=== PATIENT | female | born 1980 | race Caucasian/White ===

== ENCOUNTER 2023-03-02 11:50 | Emergency (ER) | payer OTHER ==
[~2023-03-02] VITALS: Ht 162.6 cm; Wt 77.3 kg
[2023-03-02] MEDS ORDERED: FLAGYL500 MG PO (12:20)
[2023-03-02] MEDS ORDERED: Cyclobenzaprine 10 MG TAB PO ONE (12:45)
[2023-03-02] MEDS ORDERED: FLEXERIL5 MG PO (13:26)
[2023-03-02] MEDS ORDERED: Ketorolac 30 MG/ML VIAL IM ONE (13:45)
[2023-03-02 14:17] VITALS: BP 140/82; PULSE 86; TEMP 97.2
== END 2023-03-02 14:15 | disposition home or self-care (01) ==
LOC: COL.ER 11:50
DX: M43.6 Torticollis (principal)
CPT/HCPCS: J1885

== ENCOUNTER 2023-10-08 17:02 | Emergency (ER) | payer OTHER ==
[~2023-10-08] VITALS: Ht 162.6 cm; Wt 79.5 kg
[~2023-10-08 17:02] MED LIST: FLAGYL500 MG PO; FLEXERIL5 MG PO
[2023-10-08 17:24] VITALS: TEMP 97.8
[2023-10-08 19:20] LABS: PH 5.5 (5.0-8.5); URINE APPEARANCE CLEAR (CLEAR/HAZY); URINE BLOOD NEGATIVE (NEGATIVE); URINE COLOR YELLOW (YELLOW); URINE GLUCOSE NEGATIVE (NEGATIVE); URINE KETONE NEGATIVE (NEGATIVE); URINE NITRATE NEGATIVE (NEGATIVE); URINE PROTEIN(semi-quant) NEGATIVE (NEGATIVE); URINE UROBILINOGEN 0.2 E.U/dL (0.2-1.0)
[2023-10-08 19:24] LABS: COLLECTION METHOD CLEAN CATCH
[2023-10-08 19:55] LABS: BASO % 0.2 % (0.0-2.0); EOS # 0.1 K/mm3 (0.0-0.7); GRAN # 5.1 K/mm3 (1.4-6.5); HEMATOCRIT 44.2 % (37.0-47.0); HEMOGLOBIN 14.9 g/dl (12.5-16.0); LYMPH # 2.2 K/mm3 (1.2-3.4); LYMPH % 27.2 % (20.0-51.0); MEAN CELL VOLUME 90 fl (80.0-100.0); MEAN CORPUSCULAR HEMOGLOBIN 30 pg (27-31); MEAN CORPUSCULAR HGB CONC 34 g/dl (33.0-37.0); MEAN PLATELET VOLUME 9.8 fl (7.4-10.4); MONO # 0.8 K/mm3 (0.1-0.6); MONO % 9.2 % (1.7-9.3); PLATELET COUNT 313 K/mm3 (130-400); REDCELL DISTRIBUTION WIDTH-CV 12.6 % (11.5-14.5)
[2023-10-08 20:19] LABS: ALBUMIN 3.8 g/dL (3.5-5.0); BILIRUBIN,TOTAL 0.3 mg/dL (0.2-1.2); CALCIUM 9.4 mg/dL (8.4-10.2); CREATININE, serum 0.8 mg/dL (0.57-1.11); POTASSIUM 4.1 mEq/L (3.5-4.5); TOTAL PROTEIN 7.4 g/dl (6.2-8.1)
[2023-10-08 21:25] VITALS: BP 132/71; PULSE 80
[2023-10-09] MEDS ORDERED: FLAGYL500 MG PO (00:06)
== END 2023-10-08 21:40 | disposition home or self-care (01) ==
LOC: COL.ER 17:02
PROVIDERS: Physician Assistant
DX: M54.9 Dorsalgia, unspecified (principal); N89.8 Other specified noninflammatory disorders of vagina